=== PATIENT | female | born 1965 | race Caucasian/White ===

== ENCOUNTER 2017-03-09 22:01 | Emergency (ER) | payer MEDICARE, OTHER ==
[~2017-03-09 22:01] MED LIST: DENIES HOME MEDS; METFORMIN; MEVACOR10 MG PO; NAPROXEN; NOVOLOG SC; NOVOLOGMIX SC; ZESTORETIC PO
== END 2017-03-09 22:15 | disposition home or self-care (01) ==
LOC: ER 22:01
DX: M54.42 Lumbago with sciatica, left side (principal); I10 Essential (primary) hypertension; J44.9 Chronic obstructive pulmonary disease, unspecified; K21.9 Gastro-esophageal reflux disease without esophagitis; E11.9 Type 2 diabetes mellitus without complications; Z79.4 Long term (current) use of insulin; Z79.899 Other long term (current) drug therapy
CPT/HCPCS: 99283; A9270-GY